=== PATIENT | male | born 2000 | race Two or more races ===

== ENCOUNTER 2024-12-04 20:14 | Emergency (ER) | payer OTHER ==
[~2024-12-04] VITALS: Ht 177.8 cm; Wt 151.8 kg
--- NOTE | 2024-12-04 20:45 | ED.PDOC ---
Eye-HPI HPI Comments PT PRESENTED TO ED FOR RIGHT LOWER TOOTH PAIN. PT STATED MOLAR TOOTH CROWN FELL OFF, HE WAS SEEN BY DENTIST TODAY BUT WAS NOT GIVEN PAIN MEDICATIONS. 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 PT REQUESTING PAIN MANAGEMENT. GCS-15, ALL VSS. NO SWELLING NOTED. Chief Complaint: Tooth Pain Time Seen by MD: 20:24 Reviewed Notes: Nurses Notes, Medications, Allergies Allergies: Coded Allergies: No Known Drug Allergy (Verified Allergy, Unknown, 12/04/24) Home Meds Active Scripts Amoxicillin & Pot Clavulanate (AUGMENTIN TABLET) 875 Mg Tb, 875 MG PO BID for 7 Days, #14 TAB Prov:ROYAL FALCON 12/04/24 Information Source: Patient Mode of Arrival: Ambulatory Past Medical History PAST MEDICAL HISTORY: Denies Surgical History: Denies all surgeries Family History Family History: Unknown Social History Smoker: Non-Smoker Alcohol: Denies ETOH Use Drugs: Denies Drug Use Constitutional: denies: chills, diaphoresis, fatigue, fever, malaise, sweats, weakness, others EENTM: reports: others (DENTAL PAIN); denies: blurred vision, double vision, ear bleeding, ear discharge, ear drainage, ear pain, ear ringing, eye pain, eye redness, hearing loss, mouth pain, mouth swelling, nasal discharge, nose b leeding, nose congestion, nose pain, photophobia, tearing, throat pain, throat swelling, voice changes Respiratory: denies: cough, hemoptysis, orthopnea, SOB at rest, shortness of breath, SOB with excertion, stridor, wheezing, others Cardiovascular: denies: chest pain, dizzy spells, diaphoresis, Dyspnea on exertion, edema, irregular heart beat, left arm pain, lightheadedness, palpitations, PND, syncope, others Gastrointestinal: denies: abdomen distended, abdominal pain, blood streaked bowels, constipated, diarrhea, dysphagia, difficulty swallowing, hematemesis, melena, nausea, poor appetite, poor fluid intake, rectal bleeding, rectal pain, vomiting, others Genitourinary: denies: burning, dysuria, flank pain, frequency, hematuria, incontinence, penile discharge, penile sore, pain, testicle pain, testicle swelling, urgency, others Neurological: denies: dizziness, fainting, headache, left sided numbness, left sided weakness, numbness, paresthesia, pre-existing deficit, right sided numbness, right sided weakness, seizure, speech problems, tingling, tremors, weakness, others Musculoskeletal: denies: back pain, gout, joint pain, joint swelling, muscle pain, muscle stiffness, neck pain, others Integumetry: denies: bruises, change in color, change in hair/nails, dryness, laceration, lesions, lumps, rash, wounds, others Allergic/Immunocompromised: denies: Difficulty Healing, Frequent Infections, Hives, Itching, others Hematologic/Lymphatic: denies: anemia, blood clots, easy bleeding, easy bruising, swollen glands, others Endocrine: denies: excessive hunger, excessive sweating, excessive thirst, excessive urination, flushing, intolerance to cold, intolerance to heat, unexplained weight gain, unexplained weight loss, others Psychiatric: denies: anxiety, bipolar disorder, depression, hopeless, panic disorder, schizophrenia, sleepless, suicidal, others Physical Exam General Appearance: No Apparent Distress, Normal HEENT: Normal ENT Inspection, Pharynx Normal, TMs Normal, Other (CROWN MISSING BACK MOLAR NUMBER 14 NOTED SWELLING OR OBVIOUS ABSCESS) Neck: Full Range of Motion, Non-Tender Respiratory: Lungs Clear, No Respiratory Distress, Normal Breath Sounds Cardiovascular: No Murmur, Normal Peripheral Pulses, Regular Rate/Rhythm Breast Exam: Deferred Gastrointestinal: Non Tender, Soft Genitalia: Deferred Pelvic: Deferred Rectal: Deferred Extremities: Normal capillary refill, Normal inspection, Normal range of motion, Non-tender, No pedal edema Musculoskeletal : Apperance: Normal Neurologic: Alert, water mangle tender II-XII nml as Tested, No Motor Deficits, Normal Affect, Normal Mood, No Sensory Deficits Cerebellar Function: Normal Reflexes: Normal Skin: Dry, Normal Color, Warm Lymphatic: No Adenopathy Was a procedure done? Was a procedure done?: No EENT DIFF Eye: N/A Sore Throat: Ruddy's Angina X-Ray, Labs, Meds, VS Vital Signs Date Time Temp Pulse Resp B/P (MAP) Pulse Ox O2 Delivery O2 Flow Rate FiO2 12/04/24 20:58 97.5 79 18 145/94 (111) 97 97.5 12/04/24 20:58 79 18 97 Room Air 12/04/24 20:34 97.5 79 18 145/94 (111) 97 97.5 Current Medications Medications (Trade) Dose Ordered Sig/Kaci Route Start Time Stop Time Status Last Admin Ketorolac Tromethamine (Toradol Injection) 60 mg ONCE ONCE IM 12/04/24 20:45 12/04/24 20:46 DC 12/04/24 21:15 Benzocaine (Hurricaine [place]) 1 spr ONCE ONCE MT 12/04/24 20:45 12/04/24 20:46 DC 12/04/24 21:14 Ceftriaxone Sodium (Rocephin) 1,000 mg ONCE ONCE IM 12/04/24 21:30 12/04/24 21:31 DC 12/04/24 21:25 Lidocaine HCl (Xylocaine 1%) 2.1 ml ONCE ONCE IJ 12/04/24 21:30 12/04/24 21:31 DC 12/04/24 21:25 X-Ray, Labs, Meds, VS Comment SHE WAS GIVEN TORADOL 60 MG IM AND HURRICAINE SPRAY ALONG WITH ROCEPHIN 1 G IM. PATIENT REPORTS IMPROVEMENT IN PAIN 10/27 REQUESTING DISCHARGE AT THIS TIME. STATES HE WILL CALL HIS DENTIST IN THE MORNING FOR RESOLUTION. SCRIPT AUGMENTIN TWICE DAILY X7 DAYS ADVISED TAKE MEDICATIONS PRESCRIBED SIDE EFFECTS DISCUSSED ER RETURN PRECAUTIONS GIVEN PATIENT INDICATES UNDERSTANDING. STATED THE PATIENT NOT TO TAKE TRAMADOL AND NORCO TOGETHER PATIENT STATES RECENT SURGERY TO HIS LEFT WRIST WAS PRESCRIBED NORCO AND THAT IS WHY HE IS TAKING THE NORCO HE ALSO STATED HE GOT A TRAMADOL FROM HIS SISTER AND TOOK A TRAMADOL ADVISED NOT TO TAKE OTHER PATIENT'S MEDICATIONS AND ALSO NOT TO COMBINE OPIOIDS DUE TO ACCIDENTAL OVERDOSING PATIENT INDICATED UNDERSTANDING AGREES WITH DISCHARGE PLAN OF CARE. Time of 1ST Reevaluation: 20:44 Reevaluation 1ST: Unchanged Time of 2ND Reevaluation: 21:56 Reevaluation 2ND: Improved Patient Education/Counseling: Diagnosis, Treatment, Prognosis, Need For Follow Up Family Education/Counseling: No Family Present Departure 1 Departure Time of Disposition: 21:57 Impression: Primary Impression: Dental infection Disposition: 01 HOME / SELF CARE / HOMELESS Condition: Stable e-Prescriptions Amoxicillin & Pot Clavulanate (AUGMENTIN TABLET) 875 Mg Tb 875 MG PO BID for 7 Days, #14 TAB Prov: ROYAL FALCON 12/04/24 Discharged With: Relative (Mother) Critical Care Note Critical Care Time?: No Stability Stability form required: ROYAL Staton Dec 04, 2024 20:45
[2024-12-04 20:58] VITALS: BP 145/94; PULSE 79; RESP 18; TEMP 97.5; O2SAT 97
[2024-12-04] MEDS: BENZOCAINE (DENTAL) 20 % SPRAY 60ML MT ONE (21:14)
[2024-12-04] MEDS: KETOROLAC TROMETH 60MG/2ML VIAL IM ONE (21:15)
[2024-12-04] MEDS ORDERED: AUG875T PO (21:20)
[2024-12-04] MEDS: cefTRIAXone SOD 1,000 MG VL IM ONE (21:25)
[2024-12-04] MEDS: LIDOCAINE 1% HCL (LOCAL ANESTH.) INJ 20ML MDV IJ ONE (21:25)
== END 2024-12-04 21:58 | disposition home or self-care (01) ==
LOC: ER 20:22
DX: K04.7 Periapical abscess without sinus (principal); Z79.899 Other long term (current) drug therapy
CPT/HCPCS: 96372; 99284; J0696; J1885; J2003